=== PATIENT | male | born 1940 | race African-American/Black ===

== ENCOUNTER 2019-10-11 18:58 | Emergency (ER) | payer MEDICARE, MEDICAID ==
[~2019-10-11] VITALS: Ht 188 cm; Wt 83.9 kg
[2019-10-11 19:28] VITALS: BP 126/90
[2019-10-12 00:01] LABS: HEMOGLOBIN. 11.7 g/dL (14.0-18.0); MEAN CORPUSCULAR HEMOGLOBIN 32.7 pg (28.0-32.0); MEAN CORPUSCULAR VOLUME 100.6 fL (80.0-94.0); MEAN PLATELET VOLUME 8.7 fl (7.4-10.4); PLATELET 124 x1000/uL (130-400); RED BLOOD CELL COUNT 3.58 mill/uL (4.7-6.1); RED CELL DISTRIBUTION WIDTH 16.6 % (11.6-14.6)
[2019-10-12 00:08] LABS: INR 1.3; PROTHROMBIN TIME 13.5 sec (9.6-11.0)
[2019-10-12 00:18] LABS: CHLORIDE 103 mEq/L (98-107)
[2019-10-12 02:11] LABS: PLATELET ESTIMATE SLIGHTLY DECREASED
== END 2019-10-12 01:15 | disposition home or self-care (01) ==
LOC: EDBD 18:58 → ER 18:58
DX: K92.1 Melena (principal)
CPT/HCPCS: 36415; 80053; 85025; 99283